=== PATIENT | male | born 1960 | race Caucasian/White ===

== ENCOUNTER 2018-07-06 09:40 | Outpatient (CLI) | payer OTHER, SELFPAY ==
[2018-07-06 10:03] LABS: HCT 46.8 % (40.0-50.0); HGB 16.2 g/dL (13.5-17.5); Mean Corp. HGB Concentration 34.6 g/dL (32.0-36.0); Mean Corpuscular Hemoglobin 28.7 pg (27.0-33.0); Mean Platelet Volume 8.8 fL (8.0-11.0); Platelet Count 215 x1000/uL (130-400); RBC 5.64 m/cumm (4.50-6.00); RBC Distribution Width 14.3 % (11.8-14.1); White Blood Cell Count 7.09 k/cumm (4.4-10.8)
[2018-07-06 11:20] LABS: ALT 26 U/L (12-78); AST 15 U/L (15-37); Alkaline Phosphatase 70 U/L (46-116); Anion Gap 9.2 mmol/L (3-11); BUN 18 mg/dL (7-18); Bilirubin, Total 1.1 mg/dL (0.2-1.0); CO2 28.8 mmol/L (21.0-32.0); Calcium 9.2 mg/dL (8.5-10.1); Chloride 105 mmol/L (98-107); Cholesterol 154 mg/dL (50-200); Glucose 92 mg/dL (70-100); HDL Cholesterol 36 mg/dL (40-60); LDL CHOLESTEROL 99 mg/dL (<100); Potassium 4.5 mmol/L (3.5-5.1); Sodium 143 mmol/L (136-145); Total Protein 6.9 g/dL (6.4-8.2); Triglyceride 87 mg/dL (30-150)
== END 2018-07-06 10:00 ==
PROVIDERS: PCP Nurse Practitioner; Visit Provider Nurse Practitioner
DX: E66.3 Overweight (principal); Z13.220 Encounter for screening for lipoid disorders; Z13.228 Encounter for screening for other metabolic disorders
CPT/HCPCS: 36415; 80053; 80061; 83721; 85027

== ENCOUNTER 2019-07-11 10:47 | Emergency (ER) | payer BC, SELFPAY ==
[2019-07-11 10:50] VITALS: BP 115/68; PULSE 90; RESP 18; TEMP 36.2; O2SAT 96
--- NOTE | 2019-07-11 10:55 | ED.GENADUL_ITS ---
Discharge Plan Disposition Patient Disposition: HOME Condition: Stable Discharge Details Chief Complaint: Laceration Clinical Impression: Laceration of left hand involving extensor tendon, Open fracture of distal phalanx of left hand with delayed healing Primary Care Provider: Lia Bird ED Provider: Noy Warren Home Meds and New Rx's Prescriptions: New cephalexin 500 mg tablet 500 mg PO BID 7 Days Qty: 14 RF: 0 hydrocodone-acetaminophen 5-325 mg tablet 1 tab PO BID PRN (Reason: pain) 2 Days Qty: 4 RF: 0 No Action ibuprofen 200 MG capsule 200 mg PO PRN RF: 0 Discharge Instructions Instructions: Laceration (ED), Finger Fracture (ED) Additional Instructions: Follow-up with [facility] on as discussed in department with Dr. Alvares. Keep dressing in place until follow-up on . Keep it elevated while sitting or lying down. If bleeding soaks through the dressings please return to the ED. Take medications as directed. Do not take extra Tylenol with the prescription. Referrals: Amilcar Alvares MD [ [facility] STAFF PHYSICIAN] - Medical Decision Making 59-year-old male presents with left hand trauma after a table saw accident prior to arrival. Patient second third and fourth digits on his left hand have lacerations. Ragged edges. Patient believes that he is up-to-date on his tetanus shot, verified tetanus 07-06-2018, he is declining any pain medication at this time. 1119: Pressure dressing on will start IV and give IV antibiotics plan is to page Ortho for consult. 1140: Spoke with Dr. Patino regarding patient, he agrees to come and evaluate patient. EXAM: XR HAND LT COMPLETE CLINICAL HISTORY: trauma/lacerations. TECHNIQUE: 2D digital imaging was performed. COMPARISON: No exams were available for comparison FINDINGS: BONES: There is a nondisplaced intra-articular fracture through the base of the middle phalanx of the left index finger. On the lateral view there appears to be a mildly displaced fracture through the base of the middle phalanx of the left ring finger. There are also lucency seen through the base of the middle phalanx of the left middle fingers suspicious for nondisplaced fracture. There is a comminuted fracture involving the ulnar aspect of the base of the distal phalanx of the left index finger. There is a comminuted mildly displaced fracture of the distal phalanx of the middle finger. It appears intra-artic ular. Is a comminuted fracture of the terminal tuft of the distal phalanx of the left ring finger. There is a lucency in the head of the middle phalanx of the left middle finger suspicious for nondisplaced fracture. No bony destructive lesion is seen. JOINTS: No dislocation present. SOFT TISSUE: There is soft tissue swelling of the index, middle and ring fingers. No radiopaque foreign bodies are identified in the fingers. There is a round density in the soft tissues lateral to the 1st metacarpal. This is of indeterminate acuity. IMPRESSION: Multiple fractures involving the ring, middle and index fingers as described above. Soft tissue swelling and lacerations involving the fingers. 1325: Dr. Alvares came and was at bedside for patient evaluation discussed plan of care and recommends CT of the hand to evaluate the extensor tendon on the left index finger. He recommends some small laceration repairs to the smaller lacerations and allowing the other larger lacerations to heal by secondary intention. 2 lacerations were loosely repaired as noted in procedure note other wounds were covered with Xeroform occlusive dressing and wrapped with Kerlix. Volar splint applied by tech staff and patient given a sling. Plan is to follow-up as directed by Dr. Alvares on for possible tendon repair in the OR. Total of 4 simple interrupted sutures were placed to the third and fourth digits. CT of the hand ordered results are noted below as recommended by Dr. Alvares. COMPARISON: XR HAND LT COMPLETE from 07/11/2019 FINDINGS: Index finger: There is a comminuted intra-articular fracture through the base of the middle phalanx of the index finger. There is a 0.6 cm osseous fragment from the dorsal aspect of the base of the middle phalanx which is displaced pro ximally. There is a comminuted, intra-articular fracture at the dorsal aspect of the base of the distal phalanx of the index finger. The fracture fragment is displaced 0.5 cm proximally. There is a soft tissue laceration on the dorsum of the finger. Middle finger: There is a comminuted markedly displaced fracture involving the distal half of the distal phalanx. Fragments are displaced up to 5 mm. Fracture does not appear to be intra-articular. Soft tissue swelling is noted. Ring finger: There is a small avulsion fracture of the anterior aspect of the base of the middle phalanx. The fracture is mildly displaced. There is a comminuted fracture at the ulnar aspect of the terminal tuft of the distal phalanx of the ring finger. There is moderate displacement of the fracture fragments noted. Soft tissue laceration and swelling is noted. No focal fluid collection is seen. No radiopaque foreign bodies are seen in the soft tissues. IMPRESSION: Fractures involving the index, middle and ring fingers as described above. MRI may be considered for tendon or ligament injury. Patient prescribed cephalexin 500 mg twice daily x7 days and hydrocodone and Tylenol as needed x2 days. Instructed to return if continued bleeding or any fever or concerns. This text was generated using [employer] system, please disregard any oddities of phrase or misspellings. HPI General Mode of arrival: ambulatory . Date/Time Provider Initiated Documentation: 07/11/19 10:49 . Limitations to Documentation: no limitations . Information obtained by: patient . HPI Narrative: 59-year-old male presents with left hand trauma after a table saw accident prior to arrival. Patient second third and fourth digits on his left hand have lacerations. Ragged edges. Patient believes that he is up-to-date on his tetanus, verified tetanus 07-06-2018, he is declining any pain medication at this time. Related Data Home Medications Medication Instructions Recorded Confirmed ibuprofen 200 mg PO PRN 11/12/15 07/11/19 cephalexin 500 mg PO BID 7 Days #14 tab 07/11/19 hydrocodone-acetaminophen 1 tab PO BID PRN 2 Days #4 tab 07/11/19 Previous Rx's Medication Instructions Recorded cephalexin 500 mg PO BID 7 Days #14 tab 07/11/19 hydrocodone-acetaminophen 1 tab PO BID PRN 2 Days #4 tab 07/11/19 Allergies Allergy/AdvReac Type Severity Reaction Status Date / Time No Known Drug Allergies Allergy Unverified 07/11/19 11:46 Review of Systems Narrative: Constitutional: Negative for weight loss, alert and oriented, well groomed, normal body habitus, appears comfortable. HEENT: Denies trauma, headaches, blurry vision, nasal discharge, sore throat, trouble swallowing. Chest: Denies chest pain, palpitations, irregular rhythm, hypertension. Respiratory: Denies Shortness of breath, cough, hemoptysis. GI: Denies abdominal pain, nausea, vomiting, diarrhea, constipation. Extremities: Multiple lacerations noted to left digits 2nd third and 4th fingers. Patient is right handed. : Denies dysuria, hematuria, flank pain, rectal bleeding. Neuro: Denies dizziness, blurry vision, weakness, syncope, headache or facial numbness. Hematologic: Denies easy bruising, intolerance to heat or cold, hair loss. ON LICENSE OF [facility] Medical History (Updated 07/11/19 @ 13:25 by Noy Warren) Ankylosing spondylitis (Chronic) Trochanteric bursitis of right hip (Inactive 01/29/16) Dr Ross Surgical History Colonoscopy - IV Sedation (03/20/11) Vasectomy (04/06/90) Family History Mother Age: 90 Essential hypertension Father Age: 94 Diabetes Personal history of malignant neoplasm bladder CA Heart disease CABG late 50's Brother Stroke Sister No problems noted. 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 [employer] Pets and animals: Yes Pets and animals: dog(s) Sexually active: Yes Do you think of yourself as: straight/heterosexual Current gender identity: male What type of physical activity do you participate in: walking Duration: 15-30 minutes/day Frequency: daily Seatbelt use: always Helmet use: Yes Drive intox or ride w/intox scoop driver: No Water heater temp set <120 deg: Yes Working smoke detector in home: Yes Fire extinguisher in home: Yes Carbon monox detector in home: Yes Firearms in home: Yes Firearms unloaded and locked: Yes Do you feel safe at home: Yes Do you feel safe in your relationship?: Yes Victim of physical abuse: No Victim of emotional abuse: No Victim of sexual abuse: No Exam Narrative Exam Narrative: Constitutional: Alert and oriented x3. Appears stated age. Normal body habitus. Head: Normocephalic, no trauma. Eyes: Pupils PERRLA, Red reflex noted, EOM's intact. Eyelids symmetrical withour lesions, discharge, or swelling. ENT: Bilateral TM's WNL, External ear normal to inspection, no mastoid TTP, sw elling, or erythema, Nasal turbinates WNL, no nasal discharge. Normal dentition, Posterior pharynx WNL, no exudate. Chest: RRR, Normal S1, S2, distal pulses intact. Resp: Lungs clear to auscultation bilaterally, no wheezes, rales, or rhonchi. Musculoskeletal: Normal gait, left 2nd, 3rd, 4th digits, multiple lacerations, bleeding controlled with pressure. flexion and extension intact to all digits. Neurologic: Cranial nerves II-XII intact. Alert and oriented x 3. DTR's intact. Hematologic/Lymphatic: No ecchymosis, no lymphadenopathy. Extrem Hand/finger images: 1. 3 cm ragged laceration noted to dorsal aspect through nailbed 2. approximate 2 cm laceration through nailbed, partial nail still intact. 3. 0.5 cm lac 4. 1 cm laceration Procedures Laceration Laceration 1: Site: hand Side (If applicable): left Size (cm): 0.5 Description: flap and irregular Depth: simple, single layer Local Anesthetic: Lidocaine 1% and Bupivicaine 0.5% Amount of anesthesia used (mL): 2 Pre-repair: irrigated extensively Skin layer closed with: nylon Size (cm): 5-0 Number of sutures: 2 Technique: simple, interrupted Laceration 2: Site: hand Side (If applicable): left (Ring finger) Size (cm): 1 Description: stellate and irregular Depth: simple, single layer Local Anesthetic: Lidocaine 1% and Bupivicaine 0.5% Amount of anesthesia used (mL): 2 Pre-repair: irrigated extensively Skin layer closed with: nylon Size (cm): 5-0 Number of sutures: 2 Technique: simple, interrupted Nerve Block Nerve Block 1: Time out performed: Yes Local Anesthetic: Lidocaine 1% and Bupivicaine 0.5% Amount of anesthesia used (mL): 5 Side: left Nerve Blocks: digital (3rd and fourth digits. left middle and ring finger) Procedure Successful: Yes Patient Tolerated Procedure: well and no complications
--- NOTE | 2019-07-11 11:13 | DI.RAD_ITS ---
EXAM: XR HAND LT COMPLETE CLINICAL HISTORY: trauma/lacerations. TECHNIQUE: 2D digital imaging was performed. COMPARISON: No exams were available for comparison FINDINGS: BONES: There is a nondisplaced intra-articular fracture through the base of the middle phalanx of the left index finger. On the lateral view there appears to be a mildly displaced fracture through the base of the middle phalanx of the left ring finger. There are also lucency seen through the base of the middle phalanx of the left middle fingers suspicious for nondisplaced fracture. There is a commi nuted fracture involving the ulnar aspect of the base of the distal phalanx of the left index finger. There is a comminuted mildly displaced fracture of the distal phalanx of the middle finger. It joan ears intra-articular. Is a comminuted fracture of the terminal tuft of the distal phalanx of the lef t ring finger. There is a lucency in the head of the middle phalanx of the left middle finger suspic ious for nondisplaced fracture. No bony destructive lesion is seen. JOINTS: No dislocation present. SOFT TISSUE: There is soft tissue swelling of the index, middle and ring fingers. No radiopaque fore ign bodies are identified in the fingers. There is a round density in the soft tissues lateral to th e 1st metacarpal. This is of indeterminate acuity. IMPRESSION: Multiple fractures involving the ring, middle and index fingers as described above. Soft tissue swelling and lacerations involving the fingers. DATA REPOSITORY: RADIATION DOSE DELIVERED:
[2019-07-11] MEDS: ceFAZolin 2 GM/50 ML BAG IVPB (11:24)
[2019-07-11] MEDS: Normal Saline Flush 10 ML SYR IVP (11:25)
--- NOTE | 2019-07-11 12:06 | W.ORTHOCONSU ---
Date of service: 07/11/19 Time of Service: 12:06 History of Present Illness History of Present Illness Chief Complaint: Left Hand vs Table Saw Narrative: Allen is a 59-year-old who was using a table saw earlier today. A board kicked back and when it did his hand hit the blade. He had immediate pain and notable lacerations of the index, middle, and ring finger. He also saw that the middle finger PIP joint appear to be dislocated as it was turned sideways. He reduced this himself with notable improvement in pain and appearance. He presented to the emergency department was diagnosed with complex fractures and lacerations of the index, middle, and ring fingers. He denies any active medical issues. He had no baseline issue with the left hand or the involved fingers. The pain is sharp with any direct manipulation of the fingers. He does have pain over the PIP joint of the index finger. Consults Consult date: 07/11/19 Requesting physician: Noy Warren Consult Reason Left Hand Table Saw Injury Assessment and Plan Assessment and plan (1) Open fracture of distal phalanx of middle finger: Status: Acute Qualifiers: Encounter type: initial encounter Fracture alignment: displaced Laterality: left Qualified Code(s): S62.633B - Displaced fracture of distal phalanx of left middle finger, initial encounter for open fracture (2) Open fracture of distal phalanx of left index finger with mallet deformity: Status: Acute (3) Open fracture of distal phalanx of ring finger: Status: Acute Qualifiers: Encounter type: initial encounter Fracture alignment: displaced Laterality: left Qualified Code(s): S62.635B - Displaced fracture of distal phalanx of left ring finger, initial encounter for open fracture (4) Injury of nail bed of finger of left hand: Status: Acute Qualifiers: Encounter type: initial encounter Qualified Code(s): S69.92XA - Unspecified injury of left wrist, hand and finger(s), initial encounter (5) Displaced fracture of middle phalanx of left index finger: Status: Acute Assessment and plan: Allen is a 59-year-old who suffered a left hand versus table saw injury. The wounds were thoroughly irrigated in the emergency department. I reviewed the exam findings and x-ray and CT findings with Allen. Fortunately, the majority of his injuries involve the distal aspect of the digits and can be treated conservatively. The comminuted, open fractures of the middle phalanx and the ring finger are likely to benefit from conservative treatment options. There is minimal skin to repair but for 1 or 2 small lacerations which will be performed here in the emergency department by the ED staff, Noy Warren. There is bone exposed and a large portion of his nailbed missing from the ring finger. However, the defect is about 4 to 5 mm and will likely healing with secondary intention given his lack of medical comorbidities and no smoking. Dorsal skin loss and dorsal nail loss is a challenging problem and will require tertiary involvement if it does not heal with conservative options. The comminuted fracture of the middle phalanx, while displaced, overall has its appropriate alignment and therefore can be treated conservatively as well with the natural pulp of the distal phalanx serving as a splint. Unfortunately, the index finger is slightly more complicated. He has an acute mallet finger of the index finger with a of the terminal extensor tendon. There is a laceration over the ulnar aspect of the DIP joint which is likely marketing representative of saw injury into this area causing the extensor tendon defect. Interestingly, he also has a fracture of the dorsal rim of the base of the middle phalanx which likely represents a central slip avulsion. This piece is rotated nearly 180 degrees and slightly proximal to its insertion point. Given this finding, I think it is imperative that we try to improve the alignment of the central slip fragment. Typically, the acute mallet fracture is treated conservatively with extension splinting. Given the need to fix the PIP joint, I would likely pin both DIP and PIP joints in extension. While this is necessary it will likely lead to some notable stiffness which will take some time to improve. It is very possible that extension splinting will provide enough benefit to treat these injuries. However, given the displacement of both the terminal extensor tendon and the central slip at the middle phalanx I am concerned about long-term finger function and future deformity. I reviewed all this with Allen. I recommend closed the percutaneous reduction of the middle phalanx fracture with percutaneous pinning. I would open the area if necessary, however, I will attempt this with closed means. He will have a pin in his finger keeping it fully extended for 4 to 6 weeks. He will then need bracing and splinting afterwards for another 4 to 6 weeks with aggressive hand therapy. Given the nature of this injury, I recommend antibiotics and a washout today in the emergency department. We will then plan on operative intervention and 2 to 3 days, allowing some of the initial soft tissue injury to declare itself. Qualifiers: Encounter type: initial encounter Fracture type: closed Qualified Code(s): S62.621A - Displaced fracture of middle phalanx of left index finger, initial encounter for closed fracture Review of Systems All systems reviewed & are unremarkable except as noted in HPI and below PFSH Medical History (Updated 07/12/19 @ 07:29 by Amilcar Alvares MD) Ankylosing spondylitis (Chronic) Trochanteric bursitis of right hip (Inactive 01/29/16) Dr Ross Surgical History Colonoscopy - IV Sedation (03/20/11) Vasectomy (04/06/90) Family History Mother Age: 90 Essential hypertension Father Age: 94 Diabetes Personal history of malignant neoplasm bladder CA Heart disease CABG late 50's Brother Stroke Sister No problems noted. 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 [employer] Pets and animals: Yes Pets and animals: dog(s) Sexually active: Yes Do you think of yourself as: straight/heterosexual Current gender identity: male What type of physical activity do you participate in: walking Duration: 15-30 minutes/day Frequency: daily Seatbelt use: always Helmet use: Yes Drive intox or ride w/intox fleet driver: No Water heater temp set <120 deg: Yes Working smoke detector in home: Yes Fire extinguisher in home: Yes Carbon monox detector in home: Yes Firearms in home: Yes Firearms unloaded and locked: Yes Do you feel safe at home: Yes Do you feel safe in your relationship?: Yes Victim of physical abuse: No Victim of emotional abuse: No Victim of sexual abuse: No Exam Narrative Exam Narrative: Allen is sitting comfortably in the hospital stretcher. His head is normocephalic and atraumatic. He is alert and oriented x3. His mood and affect are normal. Evaluation the left upper extremity shows obvious injury to the index, middle and ring fingers. These primarily involve the distal aspect of the digits. It is unable to determine sensation distal to the lacerations given their distal location and the complexity of the lacerations. All fingertips are well-perfused. FDP and FDS function is intact for the index, middle, and ring fingers. Index Finger: Near complete avulsion of the nail plate, attached distally. There is a remnant proximally covering the germinal matrix. The distal end of the index finger is held in a drooped position of approximately 45 degrees of flexion. There is a 2 cm laceration on the ulnar aspect of the DIP joint with no visible tendon or bone. There is swelling from the PIP joint distally. There is a prominence at the base of the middle phalanx which is painful to palpate. There is an obvious defect in the extensor tendon attachment to the distal phalanx on palpation with no active extension of the DIP joint.. No pain with passive motion of the PIP joint. Tay's test is unable to be performed given the DIP and distal phalanx involvement. Middle Finger: Multiple small lacerations are seen around the distal aspect of the middle finger. There is very minimal pain to palpation of the DIP joint and the PIP joint. There is notable swelling of the distal phalanx. No exposed tendon or bone. Ring finger: 3 cm laceration seen through the dorsal aspect of the distal ring finger. This involves the ulnar one third of the nail plate down to bone. There is approximately 4 to 6 mm of gap between tissue edges. Resp Effort & Inspection: normal respiratory effort Auscultation: clear to auscultation bilaterally Cardio Rate: regular rate Rhythm: regular rhythm Results Last Vital Signs Temp 97.2 F L 07/11/19 10:50 Pulse 90 07/11/19 10:50 Resp 18 07/11/19 10:50 BP 115/68 07/11/19 10:50 Pulse Ox 96 07/11/19 10:50 Imaging Imaging Studies: X-ray of the left hand demonstrates comminuted fractures of the distal phalanx of the index, middle finger, and ring fingers. Of the index finger this primarily involves the ulnar aspect of the base of the distal phalanx with intra-articular involvement. There is also a intra-articular fracture at the base of the middle phalanx of the index finger with displacement. On the middle finger there is comminuted fracture of the distal phalanx involving the majority of the distal phalanx with intra-articular involvement. There is a question of a small intra-articular fracture of the distal aspect of the middle phalanx. There is no joint congruity of the middle phalanx PIP or DIP joints. There is a large portion of bone missing from the distal phalanx of the ring finger. There is very minimal comminution seen. No notable intra-articular component. CT scan of the index finger demonstrates a displaced intra-articular fracture of the base of the middle phalanx with malrotation and displacement. There is no notable shaft fracture. There is also comminuted fracture seen at the base the distal phalanx with dorsal components displaced proximally. Middle finger shows a comminuted fracture of the distal phalanx without notably clear intra-articular involvement. There is displacement of the distal fragments of the distal phalanx.
--- NOTE | 2019-07-11 12:25 | DI.CT_ITS ---
EXAM: CT UPPER EXTREMITY LT WO CLINICAL HISTORY: left hand trauma. TECHNIQUE: Imaging protocol: Axial computed tomography images were obtained and coronal and sagittal reformatted images were created and reviewed. COMPARISON: XR HAND LT COMPLETE from 07/11/2019 FINDINGS: Index finger: There is a comminuted intra-articular fracture through the base of the middle phalanx o f the index finger. There is a 0.6 cm osseous fragment from the dorsal aspect of the base of the mid dle phalanx which is displaced proximally. There is a comminuted, intra-articular fracture at the do rsal aspect of the base of the distal phalanx of the index finger. The fracture fragment is displace d 0.5 cm proximally. There is a soft tissue laceration on the dorsum of the finger. Middle finger: There is a comminuted markedly displaced fracture involving the distal half of the dis maximus phalanx. Fragments are displaced up to 5 mm. Fracture does not appear to be intra-articular. S oft tissue swelling is noted. Ring finger: There is a small avulsion fracture of the anterior aspect of the base of the middle phal anx. The fracture is mildly displaced. There is a comminuted fracture at the ulnar aspect of the te rminal tuft of the distal phalanx of the ring finger. There is moderate displacement of the fracture fragments noted. Soft tissue laceration and swelling is noted. No focal fluid collection is seen. No radiopaque foreign bodies are seen in the soft tissues. IMPRESSION: Fractures involving the index, middle and ring fingers as described above. MRI may be considered for tendon or ligament injury. DATA REPOSITORY: All CT scans at this facility are submitted to the National Radiology Data Registry (NRDR) Dose Index Registry (DIR) with the [employer] (A[employer]). RADIATION OPTIMIZATION: All CT scans at this facility use at least one of these dose optimization te chniques: automated exposure control; mA and/or kV adjustment per patient size (includes targeted exa ms where dose is matched to clinical indication); or iterative reconstruction.
[2019-07-11 13:48] VITALS: BP 136/91; PULSE 86; TEMP 36.6; O2SAT 98
== END 2019-07-11 14:04 | disposition home or self-care (01) ==
PROVIDERS: Emergency Provider Registered Nurse Emergency; PCP Nurse Practitioner
DX: S62.631B Displaced fracture of distal phalanx of left index finger, initial encounter for open fracture (principal); S62.621B Displaced fracture of middle phalanx of left index finger, initial encounter for open fracture; S62.633B Displaced fracture of distal phalanx of left middle finger, initial encounter for open fracture; S62.635B Displaced fracture of distal phalanx of left ring finger, initial encounter for open fracture; S66.321A Laceration of extensor muscle, fascia and tendon of left index finger at wrist and hand level, initial encounter; W31.2XXA Contact with powered woodworking and forming machines, initial encounter; G89.11 Acute pain due to trauma
CPT/HCPCS: 12001; 64450; 96365; 99253; 99285; 73130; 73200; 99284; J0690; L3650

== ENCOUNTER 2019-07-14 09:58 | Day surgery (SDC) | payer BC, SELFPAY ==
[2019-07-14 10:06] VITALS: BP 131/90; PULSE 68; RESP 16; TEMP 36.6; O2SAT 97
[2019-07-14] MEDS: Lactated Ringers 1,000 ML 80 ML IV (10:30)
--- NOTE | 2019-07-14 10:57 | W.PM.DSUDISC ---
Discharge Plan Disposition Patient Disposition: HOME Condition: Good Discharge Details Reason For Visit: LEFT INDEX FINGER EXTENSOR TENDON INJURY Attending Provider: Amilcar Alvares Primary Care Provider: Lia Bird Home Meds and New Rx's Prescriptions: New hydrocodone-acetaminophen 5-325 mg tablet 1 tab PO Q4H PRN (Reason: pain) Qty: 5 RF: 0 Continued ibuprofen 200 MG capsule 200 mg PO PRN RF: 0 Changed cephalexin 500 mg tablet 500 mg PO QID 7 Days Qty: 14 RF: 0 Discharge Instructions Additional Instructions: Activity: You should keep the hand elevated as much as possible for the first few days. You may use the exposed fingers as tolerated but avoid trying to do too much too soon. Dressing/Cast: Your dressing and soft splint should stay in place at all times. Do NOT get it wet. You may loosen the DIDIER wrap if you feel it is too tight and then rewrap more loosely. It is best to keep this dressing on until your follow-up. If it gets soiled, wet, or comes off, you should call Dr. Alvares's office for instruction but will need to be covered with light gauze wrap. Medications: - You should take Tylenol (500mg every 6 hours as needed) and Ibuprofen (up to 800mg every 8 hours as needed) for baseline pain control. - You have Hydrocodone for breakthrough pain. Follow-up: July 17 Referrals: Amilcar Alvares MD [ [facility] STAFF PHYSICIAN] - Activity:: Elevate Remove Dressings/Wound Care:: Do Not Remove Shower/Bathe:: Cover Diet:: As Tolerated Discharge Orders Discharge Orders: Discharge Order (Routine); Ordered 07/14/19 Ordered By: Amilcar Alvares DS: Diagnosis Discharge Diagnosis (1) Displaced fracture of middle phalanx of left index finger: Status: Acute (2) Injury of nail bed of finger of left hand: Status: Acute (3) Open fracture of distal phalanx of ring finger: Status: Acute (4) Open fracture of distal phalanx of left index finger with mallet deformity: Status: Acute (5) Open fracture of distal phalanx of middle finger: Status: Acute
--- NOTE | 2019-07-14 11:00 | DI.RAD_ITS ---
EXAM: XR HAND LT LIMITED CLINICAL HISTORY: OPEN FRACTURES FINGERS LEFT HAND TECHNIQUE: 2D and realtime digital imaging was performed. CONTRAST MATERIAL: Refer to procedure report. COMPARISON: XR HAND LT COMPLETE from 07/11/2019 FINDINGS: Fluoroscopy was provided for Dr. Alvares during the performance of a percutaneous pinning of the fr actures involving the index finger of the left hand. Please refer to the procedure report for comple te details. Fluoro time: 2 minutes 1 second IMPRESSION: RADIATION DOSE DELIVERED:
[2019-07-14] MEDS: ceFAZolin 2 GM/50 ML BAG IVPB (11:01)
[2019-07-14] MEDS: Bupivacaine 0.5% Pres-Free 30 ML VIAL (11:30)
[2019-07-14] MEDS: Lidocaine 1% Multi-Dose 50 ML VIAL (11:30)
--- NOTE | 2019-07-14 12:56 | W.PM.OP ---
Date of service: 07/14/19 Time of Service: 12:56 Operative Note Operative Note DATE OF PROCEDURE: 07/14/19 PRE-OP DIAGNOSIS: Left ring finger open distal phalanx fracture, left middle finger open distal phalanx fracture, left index finger open distal phalanx fracture with extensor tendon involvement as well as fracture of the middle phalanx POST-OP DIAGNOSIS: other (As above as well as transverse nailbed laceration of the left index finger) PROCEDURE: Irrigation and debridement of left ring finger and middle finger open distal phalanx fractures. Irrigation debridement of left index finger open distal phalanx fracture with open reduction and percutaneous pinning of middle phalanx base fracture and closed reduction and pinning of the distal phalanx fracture transversing the DIP and PIP joints. Nailbed repair of left index finger. SURGEON: Amilcar Alvares MAGICIAN/ILLUSIONIST: Teetee Peterson ANESTHESIA: MAC ESTIMATED BLOOD LOSS: 5 PATHOLOGY: none sent COMPLICATIONS: None Patient was transported to: same day Patient's condition: stable Indications: Allen is a 59-year-old [id number] male who injured his left hand was a table saw. He had multiple injuries as documented previously in the emergency department note. The ring finger and middle finger injuries are able to be initially managed in the emergency department. However, the index finger had displaced fracture of the middle phalanx as well as involvement of the extensor tendon and therefore I recommended operative intervention. I discussed the risk of the procedure to include bleeding, infection, pain, stiffness, weakness, need for repeat procedures, skin damage, extensor tendon incompetency. Despite these risk, he elected to proceed. Findings: The middle and ring fingers had no displacement of her previous exam and x-rays. The one laceration which was repaired of the ring finger appear to be holding well. The remainder of the wounds of the middle and ring fingers which communicated down to the distal phalanges were debrided and showed no signs of repairable tissue the was already done. The index finger open distal phalanx fracture and laceration was thoroughly irrigated. There was comminution of the distal phalanx through the ulnar base laceration which was irrigated. A direct repair of the extensor tendon to the distal phalanx was not performed. A attempted closed reduction of the middle phalanx fracture was attempted but not successful and therefore was opened, reduced, and percutaneously pinned. A single 0.062 K wire was then placed through the distal phalanx and into the proximal phalanx. Procedure Description: Allen was greeted in the preoperative holding area. His identity was confirmed the correct side was identified and confirmed with the patient. The consent was reviewed the patient and signed. History physical was updated. He was then taken back to the operating room. He was placed in supine position and the left arm was placed onto a hand table. Prophylactic antibiotics in the form of cefazolin were administered. A timeout was performed for safe surgery. A MAC anesthetic was then given. The initial dressings were removed as far as possible. I then prepped the palmar aspect of the hand with ChloraPrep. Digital blocks were performed for the index finger, middle finger, and ring finger with a total of 20 cc of a one-to-one mixture of 1% lidocaine and 0.5% bupivacaine. He tolerated this well. Once he had a chance to set up the remainder of the dressings were removed with assistance of saline. The left hand was then prepped with Betadine and draped in a standard fashion. The ring finger was addressed first. The one laceration which was previously repaired was in good position and was not open. The remainder of the laceration which communicated down to the distal phalanx fracture was irrigated. The laceration over the ulnar aspect of the distal phalanx dorsally with absence of the nail plate was investigated as well. There was a nice thick clot present in this area. The underlying tissue was inspected to make sure that there was no nail bed material which could be salvaged. Unfortunately, there simply was an absence of tissue in this area. Given that there was no directly exposed bone at this level with excellent clot granulation tissue already starting to form I did not disrupt this. The middle finger was then addressed next. Similarly as the ring finger, the lacerations associated with the open distal phalanx fracture were inspected of any gross debris. They were debrided and then irrigated thoroughly with saline. Skin flaps were inspected but there is nothing further that could be repaired as the lacerations were complex and of varying thickness. Once these were thoroughly irrigated attention was then turned to the index finger. The index finger had a primary laceration over the ulnar aspect of the base of the distal phalanx. This was inspected and did have palpable bony pieces to palpation but none were loose and none were exposed. This was thoroughly irrigated with saline. There is a notable defect of the extensor tendon this area. Attention was then focused to the base of the middle phalanx. Using C-arm fluoroscopy the portion of the middle phalanx which was displaced was identified. Percutaneously, I placed a 0.035 K wire into this piece. I then used as a joystick to reduce. However, is unable to fully reduce the fragment. I tried multiple different positions as well as traction and extension of the distal aspect of the middle phalanx. However, I was unable to reduce fully. Therefore, I made a curvilinear incision around the PIP joint. I was able to bluntly dissect the soft tissue off of the extensor arzate. There was a portion of the triangular aponeurosis which was interposed. With trying to disrupt the soft tissues of this area as little as possible I was able to move this out of the way and reduce the fragment manually securing it with a crossing 0.035 K wire. This was confirmed on x-ray to be close to its anatomical location, slightly off but touching his bed of origin with minimal displacement. To treat the distal phalanx fracture and the distal extensor tendon injury and also to support this repair of the middle phalanx, I placed a 0.062 K wire through the distal phalanx, middle phalanx, and into the proximal phalanx. This was confirmed to be in appropriate position on both the AP and the lateral. These K wires were cut just off of the skin and covered with a Morro ball. The wounds were once again irrigated and closed with a 4-0 nylon. Prior to placing the dressings I looked at the nail the ring finger and saw that what I thought was a stable nail injury was not stable. The nail was attached distally and there was a transverse laceration of the nailbed which I did not appreciate initially in the emergency department. Using a [place] elevator the nail was removed and the nailbed was inspected. Clot was removed and the nailbed was realigned and approximated. It was in good approximation with the extension held by the K wire. Therefore, I used skin affix skin glue to repair the nailbed laceration. This had an anatomical appearance. A small portion of the nail plate was still remnant underneath the eponychial fold. However, there was nothing on at the paronychia fold. Therefore, a piece of sterile aluminum foil was fashioned to go underneath the paronychia folds and it was held there with a 4-0 chromic. The wounds and the pin sites were covered with Xeroform. The fingers were wrapped with gauze as well as interdigital gauze. These 3 fingers were then wrapped together with a Kerlix followed by an Teddy wrap. Allen tolerated the procedure well. He reported no pain. He will keep the hand elevated at all times for the next 3 to 4 days. I will see him back on Thursday for dressing change. The pin will stay in for hopefully 6 weeks, with consideration of removing 4 weeks based on skin and x-rays.
[2019-07-14 13:20] VITALS: BP 109/70; PULSE 55; RESP 16; TEMP 36.4; O2SAT 97
== END 2019-07-14 13:42 | disposition home or self-care (01) ==
PROVIDERS: PCP Nurse Practitioner; Visit Provider Student in an Organized Health Care Education/Training Program
PROC: (CPT 26735; principal; 2019-07-14 11:00)
DX: S62.631B Displaced fracture of distal phalanx of left index finger, initial encounter for open fracture (principal); S62.621B Displaced fracture of middle phalanx of left index finger, initial encounter for open fracture; S62.633B Displaced fracture of distal phalanx of left middle finger, initial encounter for open fracture; S62.635B Displaced fracture of distal phalanx of left ring finger, initial encounter for open fracture; S66.321A Laceration of extensor muscle, fascia and tendon of left index finger at wrist and hand level, initial encounter; M20.012 Mallet finger of left finger(s); W31.2XXA Contact with powered woodworking and forming machines, initial encounter
CPT/HCPCS: 26735; 11012; 26756; 11760; 76000; 73120; J0690; J2250; J3010

== ENCOUNTER 2019-08-19 09:29 | Outpatient (CLI) | payer BC, SELFPAY ==
--- NOTE | 2019-08-19 08:45 | DI.RAD_ITS ---
EXAM: XR FINGER LT INDEX CLINICAL HISTORY: RIF fx TECHNIQUE: COMPARISON: CR XR HAND LT LIMITED from 07/14/2019 FINDINGS: Two views were obtained and show fixation pins transfixing the phalanges of the index finger, no liam s interval change in alignment of multiple fractures in comparison with intraoperative films of July 13. IMPRESSION:
== END 2019-08-19 09:49 ==
PROVIDERS: PCP Nurse Practitioner; Referring Provider Nurse Practitioner; Visit Provider Physician Assistant
DX: S62.631D Displaced fracture of distal phalanx of left index finger, subsequent encounter for fracture with routine healing (principal); S62.633D Displaced fracture of distal phalanx of left middle finger, subsequent encounter for fracture with routine healing; S62.635D Displaced fracture of distal phalanx of left ring finger, subsequent encounter for fracture with routine healing
CPT/HCPCS: 73140

== ENCOUNTER 2020-07-26 04:07 | Outpatient (CLI) | payer BC, SELFPAY ==
[2020-07-26 08:33] LABS: HCT 52.5 % (40.0-50.0); HGB 17.6 g/dL (13.5-17.5); MCH 28.3 pg (27.0-33.0); MCHC 33.5 % (32.0-36.0); MCV 84.5 fL (80-95); MPV 8.4 fL (8.0-11.0); Platelet Count 194 10^3/uL (130-400); RBC 6.21 10^6/uL (4.36-5.78); RDW 13.2 % (11.8-14.1); RDW-SD 40.5 fL; WBC 7.97 10^3/uL (4.4-10.8)
[2020-07-26 08:37] LABS: ESR 6 mm//hr (0-20)
[2020-07-26 09:16] LABS: Hemoglobin A1C 5.1 % (<5.7)
[2020-07-26 09:21] LABS: ALT 38 U/L (16-63); AST 20 U/L (15-37); Albumin 4.2 g/dL (3.4-5.0); Alkaline Phosphatase 66 U/L (46-116); Anion Gap 8.3 mmol/L (3-11); BUN 17 mg/dL (7-18); Bilirubin, Total 1.1 mg/dL (0.2-1.0); CO2 27.7 mmol/L (21.0-32.0); CREATININE 1.2 mg/dL (0.70-1.30); Calcium 9.1 mg/dL (8.5-10.1); Calculated LDL 103 mg/dL (<100); Chloride 108 mmol/L (98-107); Cholesterol 157 mg/dL (<200); Glucose 94 mg/dL (74-106); HDL Cholesterol 40 mg/dL (40-60); Potassium 4.5 mmol/L (3.5-5.1); Sodium 144 mmol/L (136-145); TSH (W/Ref FT4) 1.75 uIU/mL (0.36-3.74); Total Protein 6.8 g/dL (6.4-8.2); Triglyceride 74 mg/dL (<150)
[2020-07-26 09:32] LABS: Vitamin D 25 Total 18.4 ng/mL (30-100)
[2020-07-26 09:35] LABS: C-Reactive Protein 0.29 mg/dL (0.0-0.3); Creatine Kinase 95 U/L (39-308)
[2020-07-27 14:58] LABS: ANA Interpretation Negative (Negative)
== END 2020-07-26 04:08 | disposition home or self-care (01) ==
LOC: LBO 04:07
PROVIDERS: PCP Nurse Practitioner; Visit Provider Nurse Practitioner
DX: M79.604 Pain in right leg (principal); M79.605 Pain in left leg; M45.9 Ankylosing spondylitis of unspecified sites in spine; E11.9 Type 2 diabetes mellitus without complications; Z13.220 Encounter for screening for lipoid disorders; Z83.3 Family history of diabetes mellitus
CPT/HCPCS: 36415; 80053; 80061; 82306; 82550; 85027; 85652; 83036; 84443; 86038; 86140

== ENCOUNTER 2020-08-02 02:18 | Outpatient (CLI) | payer BC, SELFPAY ==
[2020-08-02 07:53] LABS: Abs Immature Grans 0.04 10^3/uL (0.0-0.06); Absolute Basophil Count 0.07 10^3/uL (0.0-0.2); Absolute Eosinophil Count 0.04 10^3/uL (0.0-0.7); Absolute Lymphocyte Count 1.72 10^3/uL (1.2-3.4); Absolute Monocyte Count 0.39 10^3/uL (0.1-0.8); Basophils % 0.9; Eosinophils % 0.5; HCT 49.9 % (40.0-50.0); HGB 16.6 g/dL (13.5-17.5); Immature Grans % 0.5; Lymphocytes % 23.1; MCH 28.4 pg (27.0-33.0); MCHC 33.3 % (32.0-36.0); MCV 85.4 fL (80-95); MPV 8.1 fL (8.0-11.0); Monocytes % 5.2; Neutrophils % 69.8; Nucleated RBC 0 %; Platelet Count 218 10^3/uL (130-400); RBC 5.84 10^6/uL (4.36-5.78); RDW 13.4 % (11.8-14.1); RDW-SD 41.7 fL; WBC 7.46 10^3/uL (4.4-10.8)
[2020-08-02 07:56] LABS: Bilirubin Negative (Negative); Blood Negative (Negative); Clarity Clear (Clear); Glucose Negative (Negative); Ketones Negative (Negative); Leukocyte Esterase Negative (Negative); Nitrite Negative (Negative); Specific Gravity 1.015 (1.005-1.025); Urobilinogen 0.2 EU/dL (Up TO 0.2)
[2020-08-03 14:38] LABS: Erythropoietin 4.9 mIU/mL (2.6 - 18.5)
[2020-08-06 13:16] LABS: JAK2 Result see interpretation
== END 2020-08-02 02:19 | disposition home or self-care (01) ==
LOC: LBO 02:18
PROVIDERS: PCP Nurse Practitioner; Visit Provider Nurse Practitioner
DX: D75.1 Secondary polycythemia (principal)
CPT/HCPCS: 36415; 82668; 81003; 81270; 85025

== ENCOUNTER 2021-01-18 02:15 | Outpatient (CLI) | payer BC, SELFPAY ==
[2021-01-18 07:14] LABS: Abs Immature Grans 0.03 10^3/uL (0.0-0.06); Absolute Basophil Count 0.07 10^3/uL (0.0-0.2); Absolute Eosinophil Count 0.19 10^3/uL (0.0-0.7); Absolute Lymphocyte Count 1.68 10^3/uL (1.2-3.4); Absolute Monocyte Count 0.65 10^3/uL (0.1-0.8); Absolute Neutrophil Count 5.82 10^3/uL (1.2-6.7); Basophils % 0.8; Eosinophils % 2.3; HCT 48.8 % (40.0-50.0); HGB 16.3 g/dL (13.5-17.5); Immature Grans % 0.4; Lymphocytes % 19.9; MCH 28.7 pg (27.0-33.0); MCHC 33.4 % (32.0-36.0); MCV 86.1 fL (80-95); MPV 8.4 fL (8.0-11.0); Monocytes % 7.7; Neutrophils % 68.9; Nucleated RBC 0 %; Platelet Count 192 10^3/uL (130-400); RBC 5.67 10^6/uL (4.36-5.78); RDW-SD 40.7 fL; WBC 8.44 10^3/uL (4.4-10.8)
== END 2021-01-18 02:16 | disposition home or self-care (01) ==
LOC: LBO 02:15
PROVIDERS: PCP Nurse Practitioner; Visit Provider Nurse Practitioner
DX: R79.89 Other specified abnormal findings of blood chemistry (principal)
CPT/HCPCS: 36415; 85025

== ENCOUNTER 2021-03-12 10:16 | Outpatient (CLI) | payer BC, SELFPAY ==
--- NOTE | 2021-03-12 16:30 | RT.EKG_ITS ---
APPROVED REPORT Exam: Resting ECG Reason for Exam: pvc Patient Location: O HR:81 bpm ECG Measurements Heart Rate 81 AXIS IL 149 P 88 QRSd 99 QRS 49 QT 392 T 26 QTc 453 Conclusion Sinus rhythm...normal P axis, V-rate 60- 99 Atrial premature complex...SV complex w/ short R-R interval
== END 2021-03-12 10:17 | disposition home or self-care (01) ==
LOC: RT 10:16
PROVIDERS: PCP Nurse Practitioner; Visit Provider Surgery
DX: I49.1 Atrial premature depolarization (principal)
CPT/HCPCS: 93005; 93010

== ENCOUNTER 2021-03-20 00:58 | Outpatient (CLI) | payer BC, SELFPAY ==
[2021-03-20 11:22] LABS: Source Nasal/Nares
[2021-03-20 14:02] LABS: COVID-19 PCR Negative (Negative)
== END 2021-03-20 00:59 | disposition home or self-care (01) ==
LOC: LBO 00:58
PROVIDERS: PCP Nurse Practitioner; Visit Provider Surgery
DX: Z20.822 Contact with and (suspected) exposure to COVID-19 (principal)
CPT/HCPCS: 87635

== ENCOUNTER 2021-03-22 09:14 | Day surgery (SDC) | payer BC, SELFPAY ==
--- NOTE | 2021-03-21 22:30 | PDOC.DSDIS_ITS ---
Discharge Plan Disposition Patient Disposition: HOME Condition: Good Discharge Details Reason For Visit: colons hayley Attending Provider: Minna Ambriz Primary Care Provider: Lia Bird Home Meds and New Rx's Prescriptions: Continued magnesium oxide 400 mg magnesium capsule 400 mg PO .Every other day RF: 0 aspirin [Adult Low Dose Aspirin] 81 mg tablet,delayed release (DR/EC) 81 mg PO DAILY RF: 0 multivitamin Tablet 1 tab PO DAILY RF: 0 ibuprofen 200 mg capsule 400 mg PO PRN RF: 0 Discontinued polyethylene glycol 3350 17 gram/dose powder 238 g PO ONCE Qty: 238 RF: 0 bisacodyl [Dulcolax (bisacodyl)] 5 mg tablet,delayed release (DR/EC) 5 mg PO ONCE Qty: 4 RF: 0 Discharge Instructions Additional Instructions: DSU Colonoscopy Post- Op Instructions Instructions for Everyone who is given Anesthesia: For your safety, please do the following for the next twenty-four (24) hours: *Do Not operate a motor vehicle (car, truck, motorcycle, etc.) *Do Not drink alcoholic beverages or use any recreational drugs for the first 24 hours or while taking pain medications. The medications in your body may have a reaction that can be dangerous. *Do Not make any important decisions or sign any important papers. Findings:Diverticula and hemorrhoids Follow up:repeat scope in 10yrs time 1. No lifting over 20 pounds or strenuous activity for the first 24 hours after your procedure. After 24 hours there are no restrictions on your activity but you may feel fatigued for a few days. 2. After you arrive home you may have a light meal and return to your normal diet as you can tolerate it without feeling sick to your stomach. 3. You may have a bloated, gaseous feeling in your belly (abdomen) after a colonoscopy. Passing gas and belching will help. Walking or lying down on your left side with your knees flexed may relieve the discomfort. Call the office at [phone] (Office) or [phone] (Hospital) right away if you notice any of the following: a.Vomiting of blood or ?coffee ground stools?. b.Rectal bleeding 1Tbsp, blood clots or continuous bleeding. c.Severe belly (abdominal) pain. d.A hard distended belly (abdomen) and an inability to pass gas. 4. Please don?t expect to have a normal BM (bowel movement) for 2-3 days after your procedure. 5. If there are questions regarding the findings of your procedure, please contact your doctor 6. If you are unable to contact your doctor with a problem, contact the hospital at [phone]. 7. Continue all your regular medications unless directed otherwise. I understand the above instructions and have no questions. Signature of Patient or Adult Escort Name of Responsible Adult Escort Signature of Nurse Date/Time Activity:: see above Diet:: see above Discharge Orders Discharge Orders: Discharge Order (Routine); Ordered 03/21/21 Ordered By: Minna Ambriz DS: Diagnosis Discharge Diagnosis (1) Colon cancer screening: Status: Acute (2) Diverticula of colon: Status: Acute (3) PVC (premature ventricular contraction): Status: Acute (4) Abnormal CBC: Status: Acute
--- NOTE | 2021-03-21 22:34 | W.COLOREPORT ---
Colonoscopy Report Date of procedure: 03/22/21 Pre-op diagnosis general: colon cancer screening Post-op diagnosis procedure note: other (Moderate diverticular disease. Internal and external hemorrhoids.) Surgeon: Minna Ambriz Anesthesia Type: General:No Airway Pathology: none sent Complications: None Disposition: same day Prep: Miralax/Dulcolax Procedure Description: After informed consent was obtained the patient was taken to the procedure room and placed in a left decubitous position. Monitors were applied and a time out was done. The patients name, date of , procedure, allergies to medications and metal in their body was reviewed. The patient was then sedated. Once sedated and comfortable a rectal exam was done. Large external hemorrhoids internal exam revealed a normal sphincter tone and no palpable masses. The scope was then introduced and retrofelexed. Grade 2 internal hemorrhoids were identified. he also has a lot of scarring in the anal region, indicative of prior hemorrhoids/abscesses. he has moderate diverticular disease mainly in the sigmoid colon. There is no signs of active bleeding or infection at this time. No polyps were identified today. The scope was then advanced to the cecum without d good ifficulty. The TI and appendiceal orifice were identified. The prep was good . The scope was then slowly retracted over 8 minutes back into the rectum. The scope was removed and the patient was woken up and taken back to Same day surgery in stable condition. The patient tolerated the procedure well and there were no immediate complications. Follow up: The patient should follow up in 10 years unless they develop changes in bowel habits or other new gastrointestinal complaints.
[2021-03-22 09:27] VITALS: BP 122/93; PULSE 105; RESP 16; TEMP 36.3; O2SAT 100
[2021-03-22] MEDS: Lactated Ringers 1,000 ML 80 ML IV (09:35)
--- NOTE | 2021-03-22 09:43 | ANES.PREOP_ITS ---
General Info Date of Service Date Performed: 03/22/21 Height: 6 ft Weight: 89.8 kg Body Mass Index (BMI): 26.8 Surgical Procedure: Operation Date: 03/22/21 10:05 Proposed Procedures Side Surgeon p Corby Ambriz, Meds Allergies and Home Medications Allergies Allergy/AdvReac Type Severity Reaction Status Date / Time No Known Drug Allergies Allergy Unverified 03/22/21 09:25 Home Medication Medication Instructions Recorded ibuprofen 200 mg capsule 400 mg PO PRN cap 07/25/20 magnesium oxide 400 mg PO .Every other day cap 07/25/20 aspirin 81 mg tablet,delayed 81 mg PO DAILY 03/11/21 release multivitamin 1 tab PO DAILY 03/11/21 Current Visit Medications: Current Medications Generic Name Dose Route Start Last Admin Trade Name Freq PRN Reason Stop Dose Admin Hyoscyamine Sulfate 0.125 mg 03/21/21 22:30 Hyoscyamine 0.125 Mg Sl/Oral/Chew SL DIRECTED PRN Ringer's Solution 1,000 mls @ 80 mls/hr 03/22/21 06:00 03/22/21 09:35 IV 04/20/21 23:59 80 mls/hr INFUSION IRA Administration IV Miscellaneous Supplies 1 each 03/22/21 06:00 Iv Access IV 04/20/21 23:59 DIRECTED IRA Ondansetron HCl 4 mg 03/21/21 22:30 Ondansetron 4 Mg/2 Ml Vial IVP Q4H PRN PRN Nausea / Vomiting Sodium Chloride 0 ml 03/22/21 06:00 Normal Saline Flush 10 Ml Syr IV 04/20/21 23:59 PRN PRN Sodium Chloride 0 ml 03/22/21 06:00 Normal Saline 10 Ml Vial IJ 04/20/21 23:59 DIRECTED PRN Sterile Water 0 ml 03/22/21 06:00 Water,Injection,Sterile 10 Ml Vial IJ 04/20/21 23:59 DIRECTED PRN PFSH Active Problems Active Problems: Problem Status Onset Code Colon cancer screening Z12.11 Diverticula of colon K57.30 PVC (premature ventricular contraction) I49.3 Abnormal CBC R79.89 Trochanteric bursitis of right hip 01/29/16 M70.61 Screening for cholesterol level Z13.220 Family history of diabetes mellitus Z83.3 Leg pain, bilateral M79.604, M79.605 Colon cancer screening Z12.11 Routine medical exam Z00.00 Lip lesion K13.0 Injury of nail bed of finger of left hand S69.92XA Displaced fracture of middle phalanx of left index finger S62.621A Open fracture of distal phalanx of ring finger S62.638B Open fracture of distal phalanx of left index finger with mallet deformity S62.631B, M20.012 Open fracture of distal phalanx of middle finger S62.638B Ankylosing spondylitis M45.9 Overweight (BMI 25.0-29.9) E66.3 Encounter for annual physical exam Z00.00 Surgical History Surgical History Colonoscopy - IV Sedation (03/20/11) Vasectomy (04/06/90) Tobacco Smoking/Tobacco Use Status: Never Passive smoking exposure: No Second hand exposure: No Alcohol Alcohol Intake: current Alcohol intake frequency: holidays/special occasions only Substance Use Substance use type: does not use Vital Signs and Lab Results Vital Signs Most Recent Vital Signs in EMR: Most Recent Vital Signs Temp Pulse Resp BP Pulse Ox 36.3 C L 105 H 16 122/93 H 100 03/22/21 09:27 03/22/21 09:27 03/22/21 09:27 03/22/21 09:27 03/22/21 09:27 Lab Results Blood Type / Crossmatch: No Data to Display Complete Blood Count: No Data to Display Complete Metabolic Panel: No Data to Display Liver Function Panel: No Data to Display Coagulation Panel: No Data to Display Cardiac Panel: No Data to Display Arterial Blood Gas: 2 No Data to Display Venous Blood Gas: No Data to Display Pancreas Panel: No Data to Display Thyroid Panel: No Data to Display Infectious Disease: Coronavirus (COVID-19)(PCR) Negative (Negative) 03/20/21 09:30 03/20/21 Coronavirus 2019 Source Nasal/Nares 03/20/21 09:30 03/20/21 Blood Cultures: No Data to Display Toxicology Panel: No Data to Display Anesthesia Assessment and Plan Anesthesia History Personal History: No History of Anesthesia Complications Family History: No Family History of Anesthesia Complications Exercise Tolerance Exercise Tolerance: Metabolic Equivalents>4 Pertinent Negatives Pertinent Negatives: No Symptoms of GERD Cardiac & Pulmonary Exam Cardiac Exam: Normal S1/S2 Heart Sounds Pulmonary Exam: Clear Bilateral Breath Sounds Implantable Cardiac Device Does patient have a Pacemaker or an ICD?: No Airway Exam Known Difficult Airway: No Mallampati Class: 2 Mouth Opening: Normal (> 3cm) Thyromental Distance: Greater than 3 cm Neck Range of Motion: Full ROM Neck Circumference: Normal Teeth Condition: Normal Dentition ASA Classification ASA Score: ASA 2 Emergency Case?: No NPO Status NPO Status: NPO Clears >2 hours, Solids >8 hours Anesthesia Plan Resuscitation Status: Full Code Anesthesia Technique: General Anesthesia Airway Planned: Natural Airway Monitors Used: Standard Monitors
[2021-03-22 10:07] VITALS: BMI 26.8
--- NOTE | 2021-03-22 10:21 | W.ANESPRE ---
General Info Date of Service Date Performed: 03/22/21 Height: 6 ft Weight: 89.8 kg Body Mass Index (BMI): 26.8 Surgical Procedure: Operation Date: 03/22/21 10:05 Proposed Procedures Side Surgeon p Corby Ambriz, Meds Allergies and Home Medications Allergies Allergy/AdvReac Type Severity Reaction Status Date / Time No Known Drug Allergies Allergy Unverified 03/22/21 09:25 Home Medication Medication Instructions Recorded ibuprofen 200 mg capsule 400 mg PO PRN cap 07/25/20 magnesium oxide 400 mg PO .Every other day cap 07/25/20 aspirin 81 mg tablet,delayed 81 mg PO DAILY 03/11/21 release multivitamin 1 tab PO DAILY 03/11/21 Current Visit Medications: Current Medications Generic Name Dose Route Start Last Admin Trade Name Freq PRN Reason Stop Dose Admin Hyoscyamine Sulfate 0.125 mg 03/21/21 22:30 Hyoscyamine 0.125 Mg Sl/Oral/Chew SL DIRECTED PRN Ringer's Solution 1,000 mls @ 80 mls/hr 03/22/21 06:00 03/22/21 09:35 IV 04/20/21 23:59 80 mls/hr INFUSION IRA Administration IV Miscellaneous Supplies 1 each 03/22/21 06:00 Iv Access IV 04/20/21 23:59 DIRECTED IRA Ondansetron HCl 4 mg 03/21/21 22:30 Ondansetron 4 Mg/2 Ml Vial IVP Q4H PRN PRN Nausea / Vomiting Sodium Chloride 0 ml 03/22/21 06:00 Normal Saline Flush 10 Ml Syr IV 04/20/21 23:59 PRN PRN Sodium Chloride 0 ml 03/22/21 06:00 Normal Saline 10 Ml Vial IJ 04/20/21 23:59 DIRECTED PRN Sterile Water 0 ml 03/22/21 06:00 Water,Injection,Sterile 10 Ml Vial IJ 04/20/21 23:59 DIRECTED PRN PFSH Active Problems Active Problems: Problem Status Onset Code Colon cancer screening Z12.11 Diverticula of colon K57.30 PVC (premature ventricular contraction) I49.3 Abnormal CBC R79.89 Trochanteric bursitis of right hip 01/29/16 M70.61 Screening for cholesterol level Z13.220 Family history of diabetes mellitus Z83.3 Leg pain, bilateral M79.604, M79.605 Colon cancer screening Z12.11 Routine medical exam Z00.00 Lip lesion K13.0 Injury of nail bed of finger of left hand S69.92XA Displaced fracture of middle phalanx of left index finger S62.621A Open fracture of distal phalanx of ring finger S62.638B Open fracture of distal phalanx of left index finger with mallet deformity S62.631B, M20.012 Open fracture of distal phalanx of middle finger S62.638B Ankylosing spondylitis M45.9 Overweight (BMI 25.0-29.9) E66.3 Encounter for annual physical exam Z00.00 Surgical History Surgical History Colonoscopy - IV Sedation (03/20/11) Vasectomy (04/06/90) Tobacco Smoking/Tobacco Use Status: Never Passive smoking exposure: No Second hand exposure: No Alcohol Alcohol Intake: current Alcohol intake frequency: holidays/special occasions only Substance Use Substance use type: does not use Vital Signs and Lab Results Vital Signs Most Recent Vital Signs in EMR: Most Recent Vital Signs Temp Pulse Resp BP Pulse Ox 36.3 C L 105 H 16 122/93 H 100 03/22/21 09:27 03/22/21 09:27 03/22/21 09:27 03/22/21 09:27 03/22/21 09:27 Lab Results Blood Type / Crossmatch: No Data to Display Complete Blood Count: No Data to Display Complete Metabolic Panel: No Data to Display Liver Function Panel: No Data to Display Coagulation Panel: No Data to Display Cardiac Panel: No Data to Display Arterial Blood Gas: No Data to Display Venous Blood Gas: No Data to Display Pancreas Panel: No Data to Display Thyroid Panel: No Data to Display Infectious Disease: Coronavirus (COVID-19)(PCR) Negative (Negative) 03/20/21 09:30 03/20/21 Coronavirus 2019 Source Nasal/Nares 03/20/21 09:30 03/20/21 Blood Cultures: No Data to Display Toxicology Panel: No Data to Display Anesthesia Assessment and Plan Anesthesia History Personal History: No History of Anesthesia Complications Family History: No Family History of Anesthesia Complications Exercise Tolerance Exercise Tolerance: Metabolic Equivalents>4 Implantable Cardiac Device Does patient have a Pacemaker or an ICD?: No Airway Exam Known Difficult Airway: No Mallampati Class: 2 Mouth Opening: Normal (> 3cm) Thyromental Distance: Greater than 3 cm Neck Range of Motion: Full ROM Neck Circumference: Normal Teeth Condition: Normal Dentition
[2021-03-22 10:40] VITALS: BP 122/84; PULSE 89; RESP 16; TEMP 36.3; O2SAT 95
--- NOTE | 2021-03-22 10:43 | W.ANESPOSTOP ---
Postoperative Evaluation Date, Time and Location Date Performed: 03/22/21 Time Performed: 10:44 Patient Location: Day Surgery Unit Vital Signs Most Recent Imported Vital Signs: Most Recent Vital Signs Temp Pulse Resp BP Pulse Ox 36.3 C L 105 H 16 122/93 H 100 03/22/21 09:27 03/22/21 09:27 03/22/21 09:27 03/22/21 09:27 03/22/21 09:27 Pain Score Most Recent Pain Score: Most Recent Pain Score Pain Level 0 03/22/21 09:27 Assessment Mental Status: Arousable with meaningful communication Airway and Respiratory Function: Patent airway with normal (patient baseline) respiratory exam Cardiovascular Function: Hemodynamically Stable Hydration Status: Adequately Hydrated Nausea & Vomiting: No Nausea or Vomiting Pain: Pt. Denies Any Pain Peripheral Nerve Block: Patient did not receive a nerve block
[2021-03-22 11:08] VITALS: BP 132/92; PULSE 74; RESP 16; TEMP 36.4; O2SAT 97
== END 2021-03-22 11:49 | disposition home or self-care (01) ==
LOC: SUR 09:15
PROVIDERS: PCP Nurse Practitioner; Visit Provider Surgery
PROC: 0DJD8ZZ Inspection of Lower Intestinal Tract, Via Natural or Artificial Opening Endoscopic (ICD-10-PCS; CPT 45378; principal; 2021-03-22 10:00)
DX: Z12.11 Encounter for screening for malignant neoplasm of colon (principal); K57.30 Diverticulosis of large intestine without perforation or abscess without bleeding; I49.3 Ventricular premature depolarization; K64.8 Other hemorrhoids
CPT/HCPCS: 45378; J2704

== ENCOUNTER 2023-09-08 05:17 | Outpatient (CLI) | payer MEDICARE, SELFPAY ==
[2023-09-08 07:36] LABS: Abs Immature Grans 0.07 10^3/uL (0.0-0.06); Absolute Basophil Count 0.11 10^3/uL (0.0-0.2); Absolute Eosinophil Count 0.31 10^3/uL (0.0-0.7); Absolute Lymphocyte Count 2.19 10^3/uL (1.2-3.4); Absolute Monocyte Count 0.75 10^3/uL (0.1-0.8); Absolute Neutrophil Count 7.74 10^3/uL (1.2-6.7); Eosinophils % 2.8 %; HCT 49.3 % (40.0-50.0); HGB 16.5 g/dL (13.5-17.5); Immature Grans % 0.6 %; Lymphocytes % 19.6 %; MCH 28.2 pg (27.0-33.0); MCHC 33.5 % (32.0-36.0); MCV 84 fL (80-95); MPV 8.8 fL (8.0-11.0); Monocytes % 6.7 %; Neutrophils % 69.3 %; Platelet Count 203 10^3/uL (130-400); RBC 5.85 10^6/uL (4.36-5.78); RDW 12.9 % (11.8-14.1); RDW-SD 39.9 fL; WBC 11.17 10^3/uL (4.4-10.8)
[2023-09-08 08:18] LABS: ALT 27 U/L (16-63); AST 17 U/L (15-37); Albumin 3.9 g/dL (3.4-5.0); Alkaline Phosphatase 77 U/L (46-116); Anion Gap 8.5 mmol/L (3-11); BUN 14 mg/dL (7-18); Bilirubin, Total 1.1 mg/dL (0.2-1.0); CO2 28.5 mmol/L (21.0-32.0); CREATININE 1.2 mg/dL (0.70-1.30); Calcium 9.2 mg/dL (8.5-10.1); Calculated LDL 87 mg/dL (<100); Chloride 104 mmol/L (98-107); Cholesterol 147 mg/dL (<200); Estimated GFR 67.11 (mL/min/1.73m2); Glucose 101 mg/dL (74-106); HDL Cholesterol 46 mg/dL (40-60); Potassium 4.4 mmol/L (3.5-5.1); Sodium 141 mmol/L (136-145); Triglyceride 72 mg/dL (<150); Vitamin D 25 Total 30.7 ng/mL (30-100)
== END 2023-09-08 05:18 | disposition home or self-care (01) ==
PROVIDERS: PCP Nurse Practitioner; Referring Provider Nurse Practitioner; Visit Provider Nurse Practitioner
DX: E66.3 Overweight (principal); Z13.220 Encounter for screening for lipoid disorders; E55.9 Vitamin D deficiency, unspecified; E78.5 Hyperlipidemia, unspecified
CPT/HCPCS: 36415; 80053; 80061; 82306; 85025

== ENCOUNTER 2023-09-14 10:59 | Outpatient (CLI) | payer MEDICARE, SELFPAY ==
--- NOTE | 2023-09-14 10:00 | DI.RAD_ITS ---
Exam(s) XR WRIST RT COMPLETE EXAM: XR WRIST RT COMPLETE CLINICAL HISTORY: RIGHT WRIST PAIN. TECHNIQUE: 2D digital imaging was performed. COMPARISON: CT CT UPPER EXTREMITY LT WO from 07/11/2019 CR XR FINGER LT INDEX from 08/19/2019 FINDINGS: 3 views No evidence of fracture or dislocation nor significant ulnar variance. The main finding here is dege nerative change in the radiocarpal joint with narrowing of this joint at the lunate level and degener ative subarticular cysts on both sides the joint at this level, both in the distal radius and lunate bone. Scaphoid appears unremarkable. Some mild-moderate degenerative change is noted more distally at the level the carpometacarpal joint of the thumb. Faint calcification is noted in the triangular fibrocartilage on the medial aspect of the wrist. IMPRESSION: Degenerative changes in the radiocarpal joint and 1st carpometacarpal joint. DATA REPOSITORY: RADIATION DOSE DELIVERED:
== END 2023-09-14 11:00 | disposition home or self-care (01) ==
LOC: DIORS 10:59
PROVIDERS: PCP Nurse Practitioner; Referring Provider Nurse Practitioner
DX: M19.031 Primary osteoarthritis, right wrist
CPT/HCPCS: 99214; 73110

== ENCOUNTER 2024-09-27 13:55 | Outpatient (CLI) | payer MEDICARE, SELFPAY ==
[2024-09-27 14:02] LABS: Abs Immature Grans 0.02 10^3/uL (0.0-0.06); Absolute Eosinophil Count 0.18 10^3/uL (0.0-0.7); Absolute Lymphocyte Count 2.05 10^3/uL (1.2-3.4); Absolute Neutrophil Count 5.97 10^3/uL (1.2-6.7); Basophils % 1.1 %; HCT 49.4 % (40.0-50.0); HGB 16.8 g/dL (13.5-17.5); Immature Grans % 0.2 %; MCH 28.6 pg (27.0-33.0); MCV 84 fL (80-95); MPV 8.6 fL (8.0-11.0); Monocytes % 6.7 %; Platelet Count 225 10^3/uL (130-400); RBC 5.88 10^6/uL (4.36-5.78); RDW 13.4 % (11.8-14.1); RDW-SD 41.1 fL; WBC 8.92 10^3/uL (4.4-10.8)
[2024-09-27 14:14] LABS: Bilirubin Negative (Negative); Blood Negative (Negative); Clarity Clear (Clear); Glucose Negative (Negative); Ketones Negative (Negative); Leukocyte Esterase Trace (Negative); Nitrite Negative (Negative); Specific Gravity 1.025 (1.005-1.025); Urobilinogen 0.2 mg/dL (Up to 0.2); pH 5.5 (5-8)
[2024-09-27 14:21] LABS: Hemoglobin A1C 5.3 % (<5.7)
[2024-09-27 14:32] LABS: Bacteria Negative HPF (Negative); C & S Indicated? No; Casts Negative LPF (Negative); Crystals Negative HPF (Negative); Epithelial Cells Negative HPF (Negative); Mucus Negative (Negative); RBC Negative HPF (0-2); WBC 0-2 HPF (0-5)
[2024-09-27 15:31] LABS: ALT 36 U/L (16-63); AST 19 U/L (15-37); Albumin 4.1 g/dL (3.4-5.0); Alkaline Phosphatase 77 U/L (46-116); Anion Gap 7.9 mmol/L (3-11); BUN 15 mg/dL (7-18); Bilirubin, Total 1.5 mg/dL (0.2-1.0); CO2 27.1 mmol/L (21.0-32.0); CREATININE 1.3 mg/dL (0.70-1.30); Calcium 9.3 mg/dL (8.5-10.1); Calculated LDL 92 mg/dL (<100); Chloride 106 mmol/L (98-107); Cholesterol 153 mg/dL (<200); Estimated GFR 60.59 (mL/min/1.73m2); Glucose 100 mg/dL (74-106); HDL Cholesterol 41 mg/dL (>or=40); Potassium 4.3 mmol/L (3.5-5.1); Sodium 141 mmol/L (136-145); TSH (W/Ref FT4) 1.05 uIU/mL (0.36-3.74); Total Protein 7.1 g/dL (6.4-8.2); Triglyceride 102 mg/dL (<150)
[2024-09-28 09:26] LABS: PSA, Screening 2.5 ng/mL (<=4.5)
== END 2024-09-27 13:56 | disposition home or self-care (01) ==
LOC: LBO 13:55
PROVIDERS: PCP Nurse Practitioner; Visit Provider Family Medicine
DX: Z00.00 Encounter for general adult medical examination without abnormal findings (principal); Z12.5 Encounter for screening for malignant neoplasm of prostate; E78.5 Hyperlipidemia, unspecified; Z13.220 Encounter for screening for lipoid disorders; R53.83 Other fatigue; Z13.29 Encounter for screening for other suspected endocrine disorder; R73.9 Hyperglycemia, unspecified; Z83.3 Family history of diabetes mellitus
CPT/HCPCS: 36415; 80053; 80061; 84153; 81003; 81015; 83036; 84443; 85025

== ENCOUNTER 2025-01-05 09:25 | Outpatient (CLI) | payer MEDICARE, SELFPAY ==
--- NOTE | 2025-01-05 08:30 | DI.RAD_ITS ---
Exam(s) XR KNEE RT 4V AP,LAT,GIOVANNI,PAT EXAM: XR KNEE RT 4V AP,LAT,GIOVANNI,PAT CLINICAL HISTORY: RIGHT KNEE PAIN. TECHNIQUE: 2D digital imaging was performed. COMPARISON: No exams were available for comparison FINDINGS: Four views No evidence of fracture or prominent joint effusion. There is chondrocalcinosis in all 3 compartments of the knee. There is moderate narrowing of the medial compartment; less so in the other compartments. On the lateral view there is calcifications seen above the superior aspect of the patella but more posteriorly than a typical enthesophyte (which are usually located anteriorly). This may represent calcification within the quadriceps fat pad which is located at this level. IMPRESSION: Diffuse tricompartmental chondrocalcinosis. Moderate degenerative narrowing of the medial compartment. Suprapatellar finding as described above DATA REPOSITORY: RADIATION DOSE DELIVERED:
== END 2025-01-05 09:26 | disposition home or self-care (01) ==
LOC: DIORS 09:25
PROVIDERS: PCP Nurse Practitioner; Referring Provider Nurse Practitioner; Visit Provider Student in an Organized Health Care Education/Training Program
DX: M17.11 Unilateral primary osteoarthritis, right knee (principal); M25.561 Pain in right knee; M25.661 Stiffness of right knee, not elsewhere classified
CPT/HCPCS: 99213; 73564